=== PATIENT | female | born 1955 | race Asian ===

== ENCOUNTER 2018-09-19 21:38 | Emergency (ER) | payer OTHER ==
[~2018-09-19] VITALS: Ht 160 cm; Wt 68.8 kg
[~2018-09-19 21:38] MED LIST: DOCU-144 PO; HYDR-3601 PO
[2018-09-19 21:45] VITALS: BP 144/65; PULSE 76; RESP 18; Ht 160 cm; Wt 68.8 kg
[2018-09-19] MEDS ORDERED: ACETAMINOPHEN 500 MG TAB PO STA (22:17)
[2018-09-20] MEDS ORDERED: ACET-141 PO (01:45)
[2018-09-20] MEDS ORDERED: IBUP-1561 PO (01:56)
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
== END 2018-09-20 02:45 | disposition home or self-care (01) ==
LOC: FTE 21:38
DX: S92.902A Unspecified fracture of left foot, initial encounter for closed fracture (principal); S19.9XXA Unspecified injury of neck, initial encounter; V89.2XXA Person injured in unspecified motor-vehicle accident, traffic, initial encounter
CPT/HCPCS: 71046; 72040; 73610